=== PATIENT | male | born 1955 | race Caucasian/White ===

== ENCOUNTER 2017-08-29 12:03 | Emergency (ER) | payer OTHER ==
--- NOTE | 2017-08-29 12:34 | EDPHY ---
H & P Smoking Status: Never smoked Time Seen by Provider: 08/29/17 12:17 HPI/ROS: CHIEF COMPLAINT: Left rib pain after fall HISTORY OF PRESENT ILLNESS: 61-year-old male presents to the emergency department with left-sided rib pain after he slipped and fell in a bathtub while he was in [place] early this morning. The incident happened around 3:15 a.m. [place] time. The patient states that as soon as he stepped in the bathtub, he slipped and fell and landed on the left side of the tub. He did not hit his head or lose consciousness. Denies neck or back pain. He denies pain in his chest. He has pain especially with deep breathing. He denies any abdominal pain. He has urinated has not noticed any blood in his urine. No paresthesias in his upper or lower extremities. REVIEW OF SYSTEMS: Constitutional: No fever, no chills. Eyes: No double or blurry vision. ENT: No sore throat. Respiratory: No cough, no shortness of breath. Rib pain as above. Pain with deep breathing. Cardiac: No chest pain. Gastrointestinal: No abdominal pain, vomiting or diarrhea. Genitourinary: No dysuria. Musculoskeletal: No neck or back pain. Skin: No rashes. Neurological: No headache. (Bennett,Soraya M) Past Medical/Surgical History: Negative (Bennett,Soraya M) Social History: and lives in [place] (Bennett,Soraya M) Physical Exam: General Appearance: Alert, no distress. No visible signs of trauma to his head. Mentating normally and answering questions appropriately. Eyes: Pupils equal and round. Extraocular motions are all intact. ENT: Mouth: Mucous membranes moist. Respiratory: No wheezing, rhonchi, or rales, lungs are clear to auscultation. Patient has reproducible pain with palpation to the left lateral aspect of his chest wall. No palpable crepitus or other bony abnormality. Cardiovascular: Regular rate and rhythm. Gastrointestinal: Abdomen is soft. Nontender to palpate his abdomen. There is no rebound, guarding or masses noted. Specifically no pain with palpation in the left upper quadrant. Neurological: Alert and oriented x 3, cranial nerves II through XII grossly intact Skin: Warm and dry, no rashes. Musculoskeletal: Nontender to palpate along the cervical, thoracic or lumbar spine. Neck is supple. Extremities: Full range of motion and no peripheral edema. Psychiatric: Patient is oriented X 3, there is no agitation. (Soraya Guajardo) Constitutional: Initial Vital Signs Temperature (C) 36.6 C 08/29/17 12:05 Heart Rate 58 L 08/29/17 12:05 Respiratory Rate 16 08/29/17 12:05 Blood Pressure 125/89 H 08/29/17 12:05 O2 Sat (%) 93 08/29/17 12:05 O2 Delivery Mode Room Air Medical Decision Making - Diagnostics Imaging: I viewed and interpreted images myself - Diagnostics Imaging Results: Imaging Impressions Chest X-Ray 08/29/17 12:28 Impression: 1. Fracture anterolateral left 10th rib. 2. Decreased inspiration with mild compressive changes at the lung bases. 3. Increase anterior wedge compression superior endplate of T8 with stable appearance of T7. Increased anterior bridging osteophytes at T8-T9 and T9-T10 since the prior study suggesting chronic process. There is also associated increased anterior kyphosis of the midthoracic spine. Clinical correlation recommended. ED Course/Re-evaluation: 61-year-old male presents to the emergency department after he allegedly fell in the bathtub. The patient has no pain with palpation to the abdomen. I do not think he has an intra-abdominal injury. X-rays reveal left 10th rib fracture which is mildly displaced. No evidence of pneumothorax. The patient also has evidence of a worsening anterior compression deformity of T7 and T8. This was explained to the patient. I did encourage close follow-up with his primary care provider. This was also visualized on a chest x-ray in 2010 where he was supposed to have an outpatient DEXA scan which was never done. The patient will follow up with his primary care provider he states he will try to be seen later this afternoon or Friday. Patient was instructed to return to the emergency department if he felt worse in any way specifically 8th felt short of breath or felt worse in anyway per ( Soraya Guajardo) Differential Diagnosis: Including but not limited to rib fracture, contusion, pneumothorax (Soraya Guajardo) Other Provider: PHYSICIAN DOCUMENTATION: The patient was evaluated and managed by the Physician Almond Huller. My co- signature indicates that I have reviewed this chart and I agree with the findings and plan of care as documented. I am the secondary supervising physician. (Orlando Cobb) Departure - Departure Disposition: Home, Routine, Self-Care Clinical Impression: Closed rib fracture Qualifiers: Encounter type: initial encounter Rib fracture type: single rib Laterality: left Qualified Code(s): S22.32XA - Fracture of one rib, left side, initial encounter for closed fracture Condition: Good Instructions: Rib Fracture (ED) Additional Instructions: Deep breaths. Return to the emergency department if you feel short of breath, if he developed abdominal pain, or if you feel worse in any way. Use incentive spirometer as discussed. Follow up with her primary care provider regarding your ongoing back pain and worsening compression deformity of T7 and T8. Referrals: Oziel Wynne [Primary Care Provider] - 2-3 days without fail
[2017-08-29 13:54] VITALS: BP 115/85
== END 2017-08-29 13:30 | disposition home or self-care (01) ==
DX: S22.32XA Fracture of one rib, left side, initial encounter for closed fracture (principal); W01.0XXA Fall on same level from slipping, tripping and stumbling without subsequent striking against object, initial encounter; Y92.012 Bathroom of single-family (private) house as the place of occurrence of the external cause

== ENCOUNTER → 2017-09-02 | Outpatient (CLI) | payer OTHER | LOC: BMCIMAGING 14:06 | PROVIDERS: ATTEND Physician Assistant | DX: Z13.820 Encounter for screening for osteoporosis (principal); M81.0 Age-related osteoporosis without current pathological fracture; M43.9 Deforming dorsopathy, unspecified ==